=== PATIENT | female | born 1960 | race Caucasian/White ===

== ENCOUNTER 2019-10-14 15:39 | Inpatient (IN) ==
[2019-10-14 16:58] LABS: BASO# 0.08 X1000 (0.0-0.2); BASO% 0.6 % (0.0-0.8); EOS% 2.3 % (0.0-10.0); HEMATOCRIT 47.9 % (37.0-47.0); HEMOGLOBIN 15.2 g/dL (12.0-16.0); IMM GRAN# 0.05 X1000 (0.0-0.04); IMM GRAN% 0.4 % (0.0-0.5); LYMPH# 3.03 X1000 (1.2-3.4); LYMPH% 23.1 % (20.5-51.1); MCH 26.3 PG (27-31); MCHC 31.7 g/dL (33-37); MCV 82.7 FL (81-99); MONO# 0.95 X1000 (0.11-0.59); MONO% 7.2 % (1.7-9.3); MPV 11.3 FL (7.4-10.4); NEUT# 8.73 X1000 (1.4-6.5); NEUT% 66.4 % (42.2-75.2); PLT 247 X1000 (130-400); RBC 5.79 XMIL (4.2-5.4); RDW 14.7 % (11.5-14.5); WBC 13.14 X1000 (4.8-10.8)
[2019-10-14 17:16] LABS: CALCIUM 9.4 mg/dL (8.8-10.2); CREATININE 1.2 mg/dL (0.5-0.9); POTASSIUM 4.7 mmol/L (3.5-5.1)
[2019-10-14] MEDS ORDERED: DUONEB (A & A) INH ONE (17:36)
[2019-10-14] MEDS ORDERED: VENTOLIN HFA INH ONE (17:45)
[2019-10-14 18:06] LABS: ALLEN TEST YES; BE 0.9 mmoll (-3.0-3.0); BLOOD TYPE ARTERIAL; HCO3-(ACT) 25.4 mmoll (20.0-26.0); METHB 0.9 % (0.0-1.5); O2(CT) 19.7 mL/dL (15.0-23.0); PCO2(98.6) 48 mmHg (35-45); PO2(98.6) 108 mmHg (60-100); SAMPLE BLOOD; SAO2 98.4 % (95.0-100.0); THB 15.5 g/dL (11.5-17.4); pH(98.6) 7.36 (7.35-7.45)
--- NOTE | 2019-10-14 18:07 | PROVIDER DOCUMENTATION ---
This chart was entered by Pam Napoles Scribe, acting as scribe for Christine Gonzalez CRNP. HPI-Respiratory General - General Chief Complaint: Shortness of Breath Stated Complaint: CHEST PAIN Time Seen by Provider: 10/14/19 15:58 Source: patient Allergies/Adverse Reactions: Patient Allergies Allergy/AdvReac Type Severity Reaction Status Date / Time No Known Allergies Allergy Verified 10/14/19 15:52 Home Medications: Home Medication List Medication Instructions Recorded Confirmed Last Taken Type Cyclobenzaprine [Flexeril] 10 mg PO TID #20 tablet 10/15/16 Unknown Rx Famotidine [Pepcid] 20 mg PO DAILY #20 tablet 10/15/16 Unknown Rx Hydrocodone/APAP 7.5 mg/325 mg 1 each PO Q6H PRN PRN #12 tablet 10/15/16 Unknown Rx [Yulan-7.5] Ibuprofen [Motrin] 800 mg PO Q8H PRN PRN #20 tablet 10/15/16 Unknown Rx Methylprednisolone [Medrol Dosepak] 4 mg PO DIRECTED #1 package 10/15/16 Unknown Rx Fexofenadine HCl [Mayi Allergy] 60 mg PO Q12HR #10 tab 04/21/18 Unknown Rx - History of Present Illness-Resp Nature of Presenting Problem: Patient is a 59yo F who originally presented to hospital from Dr. El's office for outpatient Chest CT. Upon transfer to CT, Charge Nurse noticed patient was extremely dyspneic after walking 25 feet. Patient reports she is to have CT d/t "pneumonia that won't go away" for 2 weeks. States she has completed a course of Clarithromycin/steroids without resolution in symptoms. Patient reports low grade fever a few days ago and cough. States she has hx of COPD. Denies exposure to known/suspected sick contacts, CP, n/v/d. Upon examination, audible wheeze noted with mildly increased work of breathing. RA O2 saturation 93%. Quality of Pain: reports: pressure, tightness Severity in ED: reports: moderate Onset/Duration: reports: other (2 weeks ago) Timing: reports: still present, getting worse Exposure: reports: unknown cause Cough Quality/Degree: reports: mild, dry cough Episode Frequency: occasional episodes Current Respiratory Medication Therapy: Initiated see nurses note Modifying Factors: improves with: nothing. worse with: exertion Associated Symptoms: reports: cough, fever/chills, shortness of breath, wheezing . denies: sore throat Similar Symptoms Previously?: Yes Recently seen or treated by another doctor?: Yes (saw PCP today) Review of Systems - Adult - REVIEW OF SYSTEMS - ADULT Constitutional: reports: see HPI, fever, fatique. denies: chills Eyes: reports: no symptoms reported Ears, Nose, Mouth & Throat: denies: sinus problem, throat pain Cardiovascular: denies: chest pain, palpitations Respiratory: reports: see HPI, dyspnea on exertion, shortness of breath, wheezing. denies: cough, excessive sputum production, pleurisy Gastrointestinal: denies: abdominal pain, vomiting Genitourinary: reports: no symptoms reported Musculoskeletal: reports: no symptoms reported Integumentary: reports: no symptoms reported Neurological: reports: no symptoms reported Psychiatric: reports: no symptoms reported Endocrine: reports: no symptoms reported Past History - Adult - PAST MEDICAL HISTORY-ADULT Review of Records: reports: Nursing Assessment Review, Medications Reviewed Major Childhood Illnesses: reports: denies history Cardiovascular: reports: denies history Respiratory: reports: COPD Gastrointestinal: reports: denies history Obstetrical/Gynecological: reports: denies history Genitourinary: reports: denies history Musculoskeletal: reports: denies history Neurological: reports: denies history Endocrine/Immune: reports: denies history Other Conditions: reports: denies history - PRIOR SURGERIES/PROCEDURES Surgical/Procedure History: reports: other (cyst removal) - IMMUNIZATION STATUS Childhood Immunizations: See Nurse Assessment Flu Vaccine: See Nurse Assessment - FAMILY HISTORY Family History: reviewed, not pertinent - SOCIAL HISTORY Smoking: cigarettes, greater than 1 pack/day Provider spent 3-5 mins advising pt. on dangers of tobacco.: Discussed manners to quit use, and f/u contacts for add'l counseling. Substance Use: none/never Physical Exam-General - PHYSICAL EXAM-ADULT Initial Vital Signs Reviewed: Yes - CONSTITUTIONAL General Appearance: alert, mild distress. negative: anxious, lethargic, combative - EYES Eyes: PERRL/EOMI, pink conjunctivae - HEAD, EARS, NOSE, MOUTH & THROAT HENMT: normocephalic/atraumatic, moist mucous membranes, normal ENT inspection, TMs normal, pharynx normal. negative: angioedema - NECK Neck: non-tender, full range of motion, supple, normal inspection - RESPIRATORY Respiratory: chest non-tender, no pleuratic chest pain, no accessory muscle use, wheezing (audible/expiratory), other (dyspnea/increasing SOB when walking 25 feet in ED). negative: lungs clear, decreased breath sounds, crackles, rales - CARDIOVASCULAR Cardiovascular: regular rate, rhythm - MUSCULOSKELETAL Back Exam: normal inspection Extremity: normal range of motion, non-tender, normal gait, normal inspection - SKIN Integumentary: normal color, warm/dry. negative: cyanosis, jaundice, pallor - NEUROLOGIC Neurologic: grossly normal, no motor/sensory deficits - PSYCHIATRIC Psych/Mental Status: normal mood/affect, normal thought content, normal thought process, oriented x 3 Progress - PLAN OF CARE/RESULTS Progress/Plan/Lab Results: Vital Signs - 8 hr 10/14/19 15:48 Temperature 97.4 F L Pulse Rate 80 Respiratory Rate 20 Blood Pressure 154/87 O2 Sat by Pulse Oximetry 93 L 10/14/19 18:08 Influenza Screen - Final Nasopharyngeal 10/14/19 18:08 Group A Strep Rapid Antigen - Final Throat Laboratory Results - last 24 hr 10/14/19 10/14/19 10/14/19 16:30 16:30 16:30 WBC 13.14 H RBC 5.79 H Hgb 15.2 Hct 47.9 H MCV 82.7 MCH 26.3 L MCHC 31.7 L RDW Std Deviation 14.7 H Plt Count 247 MPV 11.3 H Immature Gran % (Auto) 0.4 Neut % (Auto) 66.4 Lymph % (Auto) 23.1 [place] % (Auto) 7.2 Eos % (Auto) 2.3 Baso % (Auto) 0.6 Immature Gran # (Auto) 0.05 H Neut # (Auto) 8.73 H Lymph # (Auto) 3.03 [place] # (Auto) 0.95 H Eos # (Auto) 0.30 Baso # (Auto) 0.08 D-Dimer, Quantitative Specimen Type Sample Site pH pCO2 pO2 HCO3 Base Excess Oxyhemoglobin ABG O2 Sat (Calculated) ABG O2 Saturation ABG Carboxyhemoglobin ABG Methemoglobin Angel Test A-a O2 Difference Total Hemoglobin Lactate Liter Flow Blood Gas Modality FiO2 % Sodium 142 Potassium 4.7 Chloride 103 Carbon Dioxide 29 Anion Gap 10 BUN 13 Creatinine 1.2 H Estimated GFR/1.73 m2 46 BUN/Creatinine Ratio 11 Glucose 95 Calculated Osmolality 283 Calcium 9.4 Creatine Kinase 105 Hrv-P-Ahkoliwhpbq Pept 45 Plasma Lactate 10/14/19 10/14/19 10/14/19 16:30 17:50 17:55 WBC RBC Hgb Hct MCV MCH MCHC RDW Std Deviation Plt Count MPV Immature Gran % (Auto) Neut % (Auto) Lymph % (Auto) [place] % (Auto) Eos % (Auto) Baso % (Auto) Immature Gran # (Auto) Neut # (Auto) Lymph # (Auto) [place] # (Auto) Eos # (Auto) Baso # (Auto) D-Dimer, Quantitative 0.45 Specimen Type ARTERIAL Sample Site L RADIAL pH 7.36 pCO2 48 H pO2 108 H HCO3 25.4 Base Excess 0.9 Oxyhemoglobin 89.7 L* ABG O2 Sat (Calculated) 19.7 ABG O2 Saturation 98.4 ABG Carboxyhemoglobin 7.90 H* ABG Methemoglobin 0.9 Angel Test YES A-a O2 Difference 32.0 Total Hemoglobin 15.5 Lactate 0.70 Liter Flow 2.0 Blood Gas Modality CANNULA FiO2 % 28.0 Sodium Potassium Chloride Carbon Dioxide Anion Gap BUN Creatinine Estimated GFR/1.73 m2 BUN/Creatinine Ratio Glucose Calculated Osmolality Calcium Creatine Kinase Rjn-B-Kcyuekqrxnb Pept Plasma Lactate 1.1 Orders Category Date Time Status Isolation Precautions Setup NOW Care 10/14/19 17:38 Active Nursing [[facility] [place]. NRSG Communication Order] DIRECTED Care 10/14/19 20:11 Active Oxygen Therapy- ED Nursing DIRECTED Care 10/14/19 18:06 Active Saline Loc NOW Care 10/14/19 17:[address] THORAX W/O CONTRAST [CT] Stat Exams 10/14/19 17:36 Completed ABG [RESP] Routine Lab 10/14/19 17:55 Completed BASIC METABOLIC PANEL [CHEM] Stat Lab 10/14/19 16:30 Completed BLOOD CULTURE [BLDCUL] Stat Lab 10/14/19 17:58 Results CBC WITH ELECTRONIC DIFF [HEME] Stat Lab 10/14/19 16:30 Completed CK PROFILE [SP CHEM] Stat Lab 10/14/19 16:30 Completed COVID19 [RF] Routine Lab 10/14/19 21:07 Received D-DIMER [COAG] Stat Lab 10/14/19 16:30 Completed DIRECT STREP Stat Lab 10/14/19 18:08 Completed INFLUENZA SCREEN A/B Stat Lab 10/14/19 18:08 Completed LACTATE, PLASMA [CHEM] Stat Lab 10/14/19 17:50 Completed PRO B-NATRIURETIC PEPTIDE Stat Lab 10/14/19 16:30 Completed PROCALCITONIN [MARTIN] Stat Lab 10/14/19 16:30 Received Albuterol 2.5MG/Ipratrop 0.5MG [Duoneb (A & A)] Med 10/14/19 17:36 Discontinued 3 ml INH NOW ONE Albuterol Sulfate Inhaler [Ventolin Hfa] Med 10/14/19 17:45 Discontinued 4 puff INH NOW ONE Azithromycin 500 mg/Ns [Zithromax 500 mg/Ns] Med 10/14/19 20:09 Discontinued 500 mg in 250 ml IV NOW Methylprednisolone Sod Succ [Solu-Medrol] Med 10/14/19 20:23 Discontinued 125 mg IV NOW ONE Piperacillin/Tazobactam [Zosyn] 4.5 gm Med 10/14/19 20:22 Discontinued 0.9% Sodium Chloride Inj [Ns] 100 ml IV NOW MDI Treatments Stat Oth 10/14/19 17:45 Active EKG [EKG] Stat Ther 10/14/19 17:37 Ordered Transfer/Admit Order [TRANSFER] Routine Transfer 10/14/19 21:15 Ordered 2015: Lab results, imaging results, and need for admission discussed with patient who agrees with and verbalizes understanding. 2107: Patient meets COVID-19 testing criteria (fever, cough, SOB w/ co- morbidities). Will obtain authorization to test by [facility] and swab patient. Result Diagrams: 10/14/19 16:30 10/14/19 16:30 - REASSESSMENT Reassessment #1 Time Reassessed: 18:00 Status: improving Reassessment Comment: Wheezing improving post MDI tx; O2 sat 98% 2L NC - EKG 1 Time of EKG reading by physician:: 21:30 EKG Read and Signed by:: Ruslan Barba EKG Interpretation (*Must complete 3 of following elements*): Normal Rate: 75 Rhythm: NSR [place]: normal QRS: normal AL Interval: normal ST Wave: normal - CT/MRI 1 CT Study: Thorax Impression: See EMR Report ([facility] - [address], [address], [place] [address] [facility] - [address] [place] [address] Department of Imaging Patient: IRINA RODRIGES Date: 10/14/19#: [id number] : 1960DM [facility] [id number] Age/Sex: 59/FRoom/Bed: Loc: ED Ordering Physician: Christine Gonzalez Family Physician: Jose Guadalupe El Jr, MD Reason for Procedure: SOB; PNA x2 weeks Signed EXAM: CT THORAX W/O CONTRAST INDICATION: SOB; PNA x2 weeks TECHNIQUE: This exam was performed using automated exposure control, adjustment of mA or kV according to patient size, and/or use of iterative reconstruction technique. COMPARISON: None. FINDINGS: There is subtle bronchial mucosal thickening mainly at the lower lobes bilaterally suggesting bronchitis. There are a couple of vague patches of groundglass opacity at both lower lung zones, for instance in the right lower lobe on image 82 of series 3 suggesting minimal pneumonitis. No significant consolidation is identified, otherwise. There is also mild subsegmental atelectasis and/or scarring at the lower lung zones bilaterally. The lungs are clear, otherwise. There is no pleural fluid collection and no pneumothorax. There is no cardiomegaly. There is no evidence of significant mediastinal or hilar lymphadenopathy. Limited views of the upper abdomen are essentially unremarkable. There is no evidence of acute osseous abnormality. IMPRESSION: Suggestion of minimal bronchial mucosal thickening at the lower lung zones bilaterally suggesting mild bronchitis with a couple of groundglass patches as described suggesting minimal pneumonitis. Electronically signed by Rodolfo Napoles 10/14/2019 7:46 PM 10/14/191945 Interpreting Physician: Rodolfo Napoles MD Dictated Date/Time: 10/14/191940 cc: Christine Gonzalez; Jose Guadalupe El Jr, MD) - CONSULTS/PCP/HOSPITALIST Notification #1 *Consult/PCP/Hospitalist*: Dr. Higuera, Hospitalist Time Discussed: 20:20 Reason/Comments: SOB, pneumonitis, failure of outpatient treatment Consult Disposition: Will see in ED, Admit Departure - Departure Date of Disposition Decision: 10/14/19 Time of Disposition Decision: 20:20 DIAGNOSIS: Shortness of breath, Pneumonitis, Failure of outpatient treatment COPD (chronic obstructive pulmonary disease) Qualifiers: COPD type: unspecified COPD Qualified Code(s): J44.9 - Chronic obstructive pulmonary disease, unspecified Disposition: ADMITTED INPATIENT 09 Certified Medical Emergency: Emergent Condition: Fair Referrals and Follow-Ups: Jose Guadalupe El Jr, MD [Primary Care Provider] - - Critical Care Note This patient required my direct & personal management of CC.: No Attestation - Physician/ NIMA Attestation Patient care was provided by Advanced Practice Provider:: Yes Advanced Practice Provider:: Christine Gonzalez Advanced Practice Provider documentation review:: The Mid-level provider documentation, treatment plan and medical decision making was reviewed by the physician who agrees with all treatment and medical decision making by the MLP. The physician spent face to face time with patient:: No Advanced Practice Provider documentation review:: Supervising physician onsite and consulted in the evaluation and care of this patient. The physician did not have a face to face encounter with the patient. This chart was documented by the indicated scribe, (Pam Napoles Scribe) and accurately reflects the services I performed and decisions made by me, Christine Gonzalez CRNP, as attested by the provider's signature.
[2019-10-14 18:09] LABS: MODALITY CANNULA; O2HB 89.7 % (95.0-99.0)
--- NOTE | 2019-10-14 19:48 | Diag Imaging Result Doc PS360 ---
EXAM: CT THORAX W/O CONTRAST INDICATION: SOB; PNA x2 weeks TECHNIQUE: This exam was performed using automated exposure control, adjustment of mA or kV according to patient size, and/or use of iterative reconstruction technique. COMPARISON: None. FINDINGS: There is subtle bronchial mucosal thickening mainly at the lower lobes bilaterally suggesting bronchitis. There are a couple of vague patches of groundglass opacity at both lower lung zones, for instance in the right lower lobe on image 82 of series 3 suggesting minimal pneumonitis. No significant consolidation is identified, otherwise. There is also mild subsegmental atelectasis and/or scarring at the lower lung zones bilaterally. The lungs are clear, otherwise. There is no pleural fluid collection and no pneumothorax. There is no cardiomegaly. There is no evidence of significant mediastinal or hilar lymphadenopathy. Limited views of the upper abdomen are essentially unremarkable. There is no evidence of acute osseous abnormality. IMPRESSION: Suggestion of minimal bronchial mucosal thickening at the lower lung zones bilaterally suggesting mild bronchitis with a couple of groundglass patches as described suggesting minimal pneumonitis. Electronically signed by Rodolfo Napoles 10/14/2019 7:46 PM
[2019-10-14] MEDS ORDERED: ZITHROMAX 500 MG/NS 500 MG/250 ML IVPB IV ONE (20:09)
[2019-10-14] MEDS ORDERED: ZOSYN 4.5 GM in NS 100 ML IV ONE (20:22)
[2019-10-14] MEDS ORDERED: SOLU-MEDROL IV ONE (20:23)
--- NOTE | 2019-10-14 21:58 | HISTORY AND PHYSICAL ---
PRIMARY CARE PROVIDER: Dr. El. CHIEF COMPLAINT: Shortness of breath for 2 weeks. HISTORY OF PRESENTING ILLNESS: This is a 59-year-old female with a history of COPD, hypothyroidism, who had presented to emergency department with 2 weeks history of having worsening shortness of breath. The patient stated that she was treated with some antibiotics for possible pneumonia. However, she did have any improvement. She was seen in the ER. She was somewhat dyspneic and due to her presenting symptoms, it was thought that she would require hospitalization for failed outpatient treatment for pneumonia. At the time of my examination, patient denied any headache, fever, chills, chest pain, hemoptysis, melena, weight changes, but complained of shortness of breath. PAST MEDICAL HISTORY: Includes COPD, hypothyroidism. PAST SURGICAL HISTORY: None. ALLERGIES: No known drug allergies. CURRENT MEDICATIONS: Include Pepcid 20 mg p.o. daily, ibuprofen 800 mg p.o. q.8 hours, [place] 7.5 one p.o. q.6 hours. SOCIAL HISTORY: 40+ pack years history of smoking. She denies any history of alcohol or illicit drug use. FAMILY HISTORY: No history of coronary disease. REVIEW OF SYSTEMS: Fourteen point review of systems is as in HPI. Other systems negative. PHYSICAL EXAMINATION: GENERAL: Cooperative, friendly female. She is resting more comfortably now. VITAL SIGNS: Temperature 97.4 degrees, pulse 80, respirations 20, blood pressure 154/87. HEENT: Atraumatic, normocephalic. Extraocular movements intact. PERRLA. NECK: No masses. CHEST: Rhonchi. CARDIOVASCULAR: Regular rate and rhythm. ABDOMEN: Soft. Positive bowel sounds. EXTREMITIES: No edema. NEUROLOGIC: She is awake, alert, oriented x3. : No bladder distention. SKIN: Warm. LABORATORY AND STUDIES: WBCs 13.14, hemoglobin 15.2, hematocrit 47.9, platelets 247,000. Blood gas shows pH of 7.36, pCO2 48, PO2 108. Sodium 142, potassium 4.7, chloride 103, CO2 is 29, BUN is 13, creatinine is 1.2, glucose 95. CT of the chest shows some bronchial mucosal thickening in the lower lung suggesting mild bronchitis and minimal pneumonitis. ASSESSMENT: A 59-year-old female with a history of chronic obstructive pulmonary disease, hypothyroidism, who presented to emergency department with 2 weeks history of persistent shortness of breath. She apparently was treated for pneumonia outpatient, however she did not have any improvement. Subsequently she had come to the emergency department. In the ED, she was evaluated and due to her presenting symptoms, she will require admission for further management. 1. Suspected pneumonia. 2. Chronic obstructive pulmonary disease exacerbation. 3. Hypothyroidism. 4, Ongoing tobacco abuse. PLAN: 1. We will admit patient to medical floor with telemetry. 2. We will check blood cultures. Start patient on IV antibiotics. 3. We will continue patient on albuterol inhaler and Solu-Medrol. 4. Restart other home medications. 5. Counseled patient on smoking cessation. 6. Put patient on DVT prophylaxis with SCDs. 7. We will continue to follow and reassess, make further recommendation based on patient's clinical course. cc: Asif Higuera MD MTDD
[2019-10-14] MEDS ORDERED: XYLOCAINE 2%/EPI 1:100,000 ONE (22:01)
--- NOTE | 2019-10-14 22:02 | EKG Report ---
Test Performed on : 10/14/2019 9:28:01 PM Test Reason : SOB Blood Pressure : / mmHG Vent. Rate : 075 BPM Atrial Rate : 075 BPM P-R Int : 130 ms QRS Dur : 074 ms QT Int : 400 ms P-R-T Axes : 079 058 053 degrees QTc Int : 446 ms Normal sinus rhythm. Normal ECG When compared with ECG of 20-JUL-2013 09:03, Nonspecific T wave abnormality no longer evident in Inferior leads QT has lengthened Unconfirmed Result
[2019-10-15] MEDS ORDERED: ZOFRAN IV PRN (00:37)
[2019-10-15] MEDS ORDERED: NORCO-10 PO ONE (02:46)
[2019-10-15] MEDS: VENTOLIN HFA INH SCH ×4 (03:42→21:34)
[2019-10-15] MEDS: ZOSYN 3.375 GM in NS 50 ML IV SCH ×4 (04:25→22:09)
[2019-10-15] MEDS: SOLU-MEDROL IV SCH ×3 (05:06→22:11)
[2019-10-15 06:13] LABS: BASO# 0.02 X1000 (0.0-0.2); BASO% 0.2 % (0.0-0.8); HEMATOCRIT 45.3 % (37.0-47.0); HEMOGLOBIN 14.2 g/dL (12.0-16.0); IMM GRAN# 0.03 X1000 (0.0-0.04); IMM GRAN% 0.3 % (0.0-0.5); LYMPH% 13.4 % (20.5-51.1); MCHC 31.3 g/dL (33-37); MONO# 0.03 X1000 (0.11-0.59); MONO% 0.3 % (1.7-9.3); MPV 11.1 FL (7.4-10.4); NEUT# 8.94 X1000 (1.4-6.5); NEUT% 85.8 % (42.2-75.2); PLT 194 X1000 (130-400); RBC 5.46 XMIL (4.2-5.4); RDW 14.5 % (11.5-14.5); WBC 10.42 X1000 (4.8-10.8)
[2019-10-15 07:23] LABS: LYMPHS 14 % (21-51); SEGS 86 % (42-75)
[2019-10-15] MEDS: NEURONTIN PO SCH ×3 (10:36→22:10)
[2019-10-15] MEDS ORDERED: NON-FORMULARY MED (Celecoxib 200 MG) PO SCH (12:30)
[2019-10-15] MEDS: SYMBICORT 160/4.5 MICROGM INHALER INH SCH ×2 (13:00→21:34)
--- NOTE | 2019-10-15 13:06 | PROGRESS NOTE ---
DATE: 10/15/2019 SUBJECTIVE: The patient reports breathing better. No complaints at this time. OBJECTIVE: Vital Signs: Temperature 98.4 degrees, heart rate 90, respiratory rate 17, blood pressure 128/66, O2 saturation 97% on 2 L nasal cannula. General examination: This is a 59- year-old female lying in bed, in no acute distress. Cardiovascular Exam: S1, S2 heard. No murmurs, gallops, or rubs. Regular rate and rhythm. Respiratory exam: Some rhonchi is noted in both pulmonary bases. Patient not using any accessory muscles or having work of breathing. Abdomen: Soft, nontender to palpation. Bowel sounds present. No organomegaly. Extremities: No clubbing, cyanosis, or edema. Peripheral pulses present in both legs. Neurological exam: The patient is alert and oriented x3. Moves 4 extremities. LABORATORY DATA: Reviewed. ASSESSMENT AND PLAN: 1. Acute respiratory failure secondary to chronic obstructive pulmonary disease exacerbation secondary to acute bronchitis. At this point, will continue with Ventolin MDI p.r.n. shortness of breath as well as antibiotics. We are going to provide IV steroids for 3 doses. Will continue with the same management. 2. For hypothyroidism, will continue with home medication. 3. For spinal stenosis, we will restart home medications including muscle relaxants as well. 4. This patient has been tested for Coronavirus Disease 2019 considering her respiratory symptoms. Will monitor this patient closely. She is not feeling short of breath or feverish. Will continue to monitor. cc: Antoine Sibley MD
[2019-10-15] MEDS: NICODERM PATCH TD SCH (14:54)
[2019-10-15] MEDS: SYNTHROID PO SCH (14:55)
[2019-10-15] MEDS: CELEBREX PO SCH ×2 (15:02→22:10)
[2019-10-15] MEDS: FLEXERIL PO SCH ×2 (15:03→22:10)
[2019-10-16] MEDS: ZOSYN 3.375 GM in NS 50 ML IV SCH ×2 (02:52→08:45)
[2019-10-16] MEDS: VENTOLIN HFA INH SCH ×3 (03:27→16:38)
[2019-10-16] MEDS: SYNTHROID PO SCH (05:33)
[2019-10-16 06:08] LABS: BASO# 0.01 X1000 (0.0-0.2); BASO% 0.1 % (0.0-0.8); HEMATOCRIT 42.1 % (37.0-47.0); HEMOGLOBIN 13.4 g/dL (12.0-16.0); IMM GRAN# 0.06 X1000 (0.0-0.04); IMM GRAN% 0.3 % (0.0-0.5); LYMPH# 1.58 X1000 (1.2-3.4); LYMPH% 8.2 % (20.5-51.1); MCH 26.1 PG (27-31); MCHC 31.8 g/dL (33-37); MCV 81.9 FL (81-99); MONO# 0.62 X1000 (0.11-0.59); MONO% 3.2 % (1.7-9.3); MPV 11.2 FL (7.4-10.4); NEUT# 17.07 X1000 (1.4-6.5); NEUT% 88.2 % (42.2-75.2); PLT 252 X1000 (130-400); RBC 5.14 XMIL (4.2-5.4); RDW 14.5 % (11.5-14.5); WBC 19.34 X1000 (4.8-10.8)
[2019-10-16 06:17] LABS: AGAP 11; BUN 18 mg/dL (8-22); CALCIUM 9.3 mg/dL (8.8-10.2); CHLORIDE 102 mmol/L (98-107); COSMO 279; CREATININE 0.9 mg/dL (0.5-0.9); ESTIMATED GFR > 60; GLUCOSE 154 mg/dL (70-104); POTASSIUM 4.4 mmol/L (3.5-5.1); SODIUM 137 mmol/L (136-145); TCO2 24 mmol/L (25-35)
[2019-10-16 06:40] LABS: BANDS 4 % (0-1); LYMPHS 8 % (21-51); SEGS 88 % (42-75)
[2019-10-16] MEDS: SYMBICORT 160/4.5 MICROGM INHALER INH SCH (07:45)
[2019-10-16] MEDS: NICODERM PATCH TD SCH (08:45)
[2019-10-16] MEDS: FLEXERIL PO SCH (08:46)
[2019-10-16] MEDS: CELEBREX PO SCH (08:46)
[2019-10-16] MEDS: NEURONTIN PO SCH (08:46)
[2019-10-16] MEDS ORDERED: PRAVACHOL PO SCH (09:00)
[2019-10-16 15:43] VITALS: BP 137/79
--- NOTE | 2019-10-16 17:20 | DISCHARGE SUMMARY ---
ADMISSION DATE: 10/14/2019 DISCHARGE DATE: 10/16/2019 DISCHARGE DIAGNOSES: 1. Chronic obstructive pulmonary disease exacerbation. 2. Acute on likely chronic hypercapnic respiratory failure. 3. Bronchitis, pneumonia. 4. Hypothyroidism. 5. Chronic pain. 6. COVID-19 testing pending. HOSPITAL COURSE: The patient presented with complaints of 2 weeks of worsening shortness of breath. She was treated with some kind of antibiotics as outpatient, was uncertain what. CT chest showed bronchial mucosal thickening in the lower lung zones bilaterally suggesting bronchitis as well as some ground-glass patches suggesting mild pneumonitis. ABG showed CO2 retention of 48 with a pH at the bottom end of normal at 7.36. The patient was wheezing and short of breath, and so she was admitted for treatment of COPD exacerbation. She was placed on antibiotics initially with Zosyn, and COVID-19 testing was sent. The patient was placed on steroids and albuterol inhaler as well. With this therapy, patient improved fairly rapidly. The patient was saturating well on room air. On the day of discharge, her dyspnea was largely resolved aside from with significant exertion. Her wheezing was minimal, and air entry was good. Given patient's clinical improvement, decided to send her home on oral doxycycline and oral steroids. The patient is to continue to observe isolation precautions at home until her COVID-19 test results. Hopefully, we will get that back Thursday or Thursday. Patient to follow up with PCP in 1 to 2 weeks depending on her COVID test results. The patient's other chronic comorbidities were stable. Discharge Medications: celebrex gabapentin synthroid 50mcg pravastatin albuterol inhaler symbicort inhaler doxycycline for 7 days flexeril medrol dosepak nicotine patch Follow up and plan: Patient discharging home on course of doxycyline to finish treatment of pneumonia and short course of oral steroids for copd exacerbation. Patient to follow up with pcp. tobacco cessation strongly advised. [facility]
== END 2019-10-16 17:03 | disposition home or self-care (01) | DRG 193 ==
LOC: ED 15:39 → 4N 23:13 → SUATTDRO 23:13
PROVIDERS: ATTEND Internal Medicine